=== PATIENT | male | born 1980 | race Caucasian/White ===

== ENCOUNTER 2025-01-05 20:26 | Inpatient (IN) | payer BC ==
[~2025-01-05] VITALS: Ht 193 cm; Wt 83.9 kg
[2025-01-05 23:11] LABS: APPEARANCE,URINE CLEAR (CLEAR); BLOOD, URINE NEGATIVE Ery/uL (NEGATIVE); LEUKOCYTE ESTERASE ,URINE NEGATIVE (NEGATIVE); NITRITE, URINE NEGATIVE (NEGATIVE); UGLUCOSE NEGATIVE (NEGATIVE)
[2025-01-05] MEDS ORDERED: MORPHINE SULFATE INJ 4 MG/ML DISP.SYRIN ONE (23:12)
[2025-01-05] MEDS ORDERED: ONDANSETRON HCL/PF 4 MG/2 ML VIAL ONE (23:12)
[2025-01-05 23:17] LABS: ADD URINE CULTURE NO; SQUAMOUS EPITHELIAL CELL,UR None Seen /HPF (None Seen)
[2025-01-05] MEDS: ONDANSETRON HCL/PF 4 MG/2 ML VIAL IVP ONE (23:20)
[2025-01-05] MEDS: MORPHINE SULFATE INJ 2 MG/ML DISP.SYRIN IV ONE (23:21)
[2025-01-05] MEDS: IV NS 0.9% 1,000 ML BAG IV ONE (23:30)
[2025-01-05 23:40] LABS: PLATELET COUNT (AUTO) 315 K/uL (150-450); RED BLOOD CELL COUNT(AUTO) 5.76 MIL/uL (4.5-6.0); RED CELL DISTRIBUTION WIDTH 13.1 % (11.5-15.0); WHITE BLOOD COUNT (AUTO) 13.5 K/uL (4.3-11.0)
[2025-01-05 23:46] LABS: CALCIUM, SERUM 9.8 mg/dL (8.5-10.1); CREATININE 1.1 mg/dL (0.6-1.3); SODIUM SERUM 138.0 mmol/L (136-145); UREA NITROGEN, BLOOD 10.0 mg/dL (7-18)
[2025-01-05 23:52] LABS: ASPARTATE AMINOTRANSFERASE 16.0 U/L (15-37); TOTAL PROTEIN, SERUM 7.7 g/dL (6.4-8.2)
[2025-01-05 23:55] LABS: INR 0.97 (0.91-1.10)
[2025-01-06 02:15] VITALS: BP 110/75; TEMP 97.5; O2SAT 97
[2025-01-06] MEDS: CEFTRIAXONE 1GM BAG (ER ONLY) 50 ML IV ONE (02:22)
[2025-01-06] MEDS: CEFTRIAXONE 1 G in IV D5W 50 ML IV ONE (02:28)
[2025-01-06] MEDS: IV NS 0.9% 1,000 ML IV PRN (02:28)
[2025-01-06] MEDS: MORPHINE SULFATE INJ 2 MG/ML DISP.SYRIN IV PRN (02:52)
[2025-01-06 06:53] LABS: PLATELET COUNT (AUTO) 248 K/uL (150-450); RED BLOOD CELL COUNT(AUTO) 4.57 MIL/uL (4.5-6.0); RED CELL DISTRIBUTION WIDTH 12.9 % (11.5-15.0); WHITE BLOOD COUNT (AUTO) 9.0 K/uL (4.3-11.0)
[2025-01-06 07:50] LABS: ASPARTATE AMINOTRANSFERASE 15.0 U/L (15-37); CALCIUM, SERUM 7.9 mg/dL (8.5-10.1); CREATININE 0.9 mg/dL (0.6-1.3); PHOSPHORUS 4.7 mg/dL (2.5-4.9); SODIUM SERUM 139.0 mmol/L (136-145); TOTAL PROTEIN, SERUM 5.9 g/dL (6.4-8.2); UREA NITROGEN, BLOOD 10.0 mg/dL (7-18)
[2025-01-06] MEDS ORDERED: OMEP40CA21 PO (07:55)
[2025-01-06] MEDS ORDERED: UPAD15TA PO (07:55)
[2025-01-06 08:00] VITALS: BP 103/70; TEMP 98.1; O2SAT 95
[2025-01-06] MEDS: PANTOPRAZOLE 40 MG VIAL IV SCH (09:40)
[2025-01-06] MEDS ORDERED: DIATR MEGLU/DIATRIZOATE SODIUM 120 ML BOTTLE (GASTROGRAPHIN) ONE (12:49)
[2025-01-06 16:00] VITALS: BP 110/71; TEMP 97.7; O2SAT 95
[2025-01-06] MEDS: ONDANSETRON HCL/PF 4 MG/2 ML VIAL IVP PRN (19:34)
[2025-01-06 20:00] VITALS: BP 112/84; TEMP 97.9; O2SAT 97
[2025-01-06] MEDS: CEFTRIAXONE 1 G in IV D5W 50 ML IV SCH (20:00)
[2025-01-07 06:42] LABS: PLATELET COUNT (AUTO) 218 K/uL (150-450); RED BLOOD CELL COUNT(AUTO) 4.32 MIL/uL (4.5-6.0); RED CELL DISTRIBUTION WIDTH 13.3 % (11.5-15.0); WHITE BLOOD COUNT (AUTO) 6.1 K/uL (4.3-11.0)
[2025-01-07 06:46] LABS: CALCIUM, SERUM 7.9 mg/dL (8.5-10.1); CREATININE 0.9 mg/dL (0.6-1.3); PHOSPHORUS 3.3 mg/dL (2.5-4.9); SODIUM SERUM 140.0 mmol/L (136-145); UREA NITROGEN, BLOOD 13.0 mg/dL (7-18)
[2025-01-07 08:00] VITALS: BP 109/75; TEMP 98.2; O2SAT 97
[2025-01-07 16:00] VITALS: BP 115/79; TEMP 97.9; O2SAT 99
[2025-01-07 20:00] VITALS: BP 98/66; TEMP 98.1; O2SAT 97
[2025-01-08 08:00] VITALS: BP 100/73; TEMP 97.9; O2SAT 98
[2025-01-08] MEDS ORDERED: HYDR-3972 PO (18:08)
== END 2025-01-08 12:50 | disposition home or self-care (01) | DRG 389 ==
LOC: ER 20:30 → MED 01-06 01:24
PROVIDERS: ADMIT Nurse Practitioner Acute Care; ATTEND Nurse Practitioner Acute Care
DX: K56.51 Intestinal adhesions [bands], with partial obstruction (principal); K50.90 Crohn's disease, unspecified, without complications; Z96.643 Presence of artificial hip joint, bilateral; D72.829 Elevated white blood cell count, unspecified; Z88.2 Allergy status to sulfonamides; F12.90 Cannabis use, unspecified, uncomplicated; Z72.0 Tobacco use; Z90.49 Acquired absence of other specified parts of digestive tract; K56.7 Ileus, unspecified; R11.10 Vomiting, unspecified
CPT/HCPCS: 36415; 74250-TC; 80048-TC; 80076-TC; 81001; 83605-TC; 83690-TC; 83735-TC; 84100-TC; 85025-TC; 85730-TC; A4223; G0378; J0696; J2270; J2405; J2470; J7030; J7060; Q9963